=== PATIENT | male | born 2005 | race Two or more races ===

== ENCOUNTER → 2024-07-08 | Outpatient (CLI) | LOC: M SOG 13:42 | PROVIDERS: ATTEND Physician Assistant | DX: M25.572 Pain in left ankle and joints of left foot (principal) ==

== ENCOUNTER → 2024-07-26 | Outpatient (CLI) | LOC: M SOG 13:57 | PROVIDERS: ATTEND Orthopaedic Surgery Hand Surgery | DX: M79.605 Pain in left leg (principal) ==

== ENCOUNTER → 2024-07-27 | Outpatient (CLI) | payer OTHER | LOC: M PLAIMG 10:59 | PROVIDERS: ATTEND Orthopaedic Surgery Hand Surgery | DX: M84.361A Stress fracture, right tibia, initial encounter for fracture (principal) ==